=== PATIENT | female | born 1960 ===

== ENCOUNTER → 2025-02-21 17:08 | Outpatient (REF) | payer BC, SELFPAY ==
[2025-02-22 09:06] LABS: Glycohemoglobin (HgbA1c) 6.1 % (4.0-5.6)
== END ==
LOC: CLAB 17:08
PROVIDERS: ATTENDING PHYSICIAN Internal Medicine
DX: E11.9 Type 2 diabetes mellitus without complications (principal)
CPT/HCPCS: 36415; 83036